=== PATIENT | male | born 1945 | race Caucasian/White ===

== ENCOUNTER 2016-12-18 11:55 | Emergency (ER) | payer OTHER ==
[~2016-12-18] VITALS: Ht 157.5 cm; Wt 65.0 kg
[2016-12-18 11:59] VITALS: Ht 157.5 cm; Wt 65.0 kg
[2016-12-18] MEDS ORDERED: LIDOCAINE 1% (MDV) 20 ML INJ SC ONE (13:30)
[2016-12-18] MEDS ORDERED: IBUPROFEN 600 MG TAB PO ONE (13:30)
[2016-12-18] MEDS ORDERED: DIPHTH/TET/ACEL PERTUSS (ADULT) 0.5 ML VIAL IM* ONE (13:30)
--- NOTE | 2016-12-18 13:44 | RADRPT ---
PROCEDURE: XR Finger. CLINICAL INDICATION: Trauma with laceration. Right fourth finger pain. TECHNIQUE: Three views. Frontal, lateral, and oblique. COMPARISON: None available FINDINGS: There is no fracture or dislocation. The soft tissues are normal. There are degenerative changes of the interphalangeal joints with small osteophytes noted. There is no lytic or blastic lesion. There is no radiopaque foreign body. IMPRESSION: 1. Mild degenerative change. 2. Otherwise normal images of the right fourth finger. RPTAT: QQ .Aleksandr Mcfadden MD, MD Date Time Electronically viewed and signed by .Aleksandr Mcfadden MD, MD on 12/18/2016 13:44 .R/
--- NOTE | 2016-12-18 14:20 | ERD ---
ER Documentation Chief Complaint Date/Time DATE: 12/18/16 TIME: 14:14 Chief Complaint SENT BY PMD FOR LAC ON HAND AND IS UNBLE TO MOVE 4TH FINGER PER NOTE HPI 71-year-old male presents to ED with laceration of his dorsal right fourth finger. Patient stated that he was fixing things in house when a piece of metal object fell and landed on his hand. He was seen at another clinic first, and was sent here to rule out possible tendon injury. Patient does not remember when his last tetanus update was. ROS All systems reviewed and are negative except as per history of present illness. Medications Home Meds Active Scripts Ibuprofen* (Motrin*) 600 Mg Tab, 600 MG PO Q6H Y for PAIN AND OR ELEVATED TEMP, #30 TAB Prov:BARBARANITO Gustabo. FINANCE PROFESSIONAL 12/18/16 Allergies Allergies: Coded Allergies: No Known Allergy (Unverified , 12/18/16) PMhx/Soc Medical and Surgical Hx: pt denies Medical Hx, pt denies Surgical Hx Hx Alcohol Use: No Hx Substance Use: No Hx Tobacco Use: No Smoking Status: Never smoker Physical Exam Vitals Vital Signs Date Time Temp Pulse Resp B/P Pulse Ox O2 Delivery O2 Flow Rate FiO2 12/18/16 11:59 97.7 70 18 186/81 99 Physical Exam General impression: Well-developed, well-nourished. Alert, oriented, in no acute distress Head: Normocephalic, atraumatic. Respiration: Normal respiratory effort. Lungs clear to auscultate bilaterally. No wheezes, rales or rhonchi. Cardiovascular: Regular rate and rhythm. No murmurs or extra heart sounds. Extremities: 1 cm stellar laceration noted on the dorsal right fourth finger , overlying the PIP joint. Underlying bony structure was able was seen through the laceration. Patient has normal flexion and extension of the affected finger , neurovascularly intact distally. Neuro: Mental status normal, speech normal. PSYCHOLOGIST MILITARY PERSONNEL grossly intact. Skin: Normal turgor. No rash or lesions. Psych: Normal mood and affect. Results 24 hrs Current Medications Medications (Trade) Dose Ordered Sig/Emiliano Route PRN Reason Start Time Stop Time Status Last Admin Dose Admin Ibuprofen (Motrin) 600 mg ONCE ONCE PO 12/18/16 13:30 12/18/16 13:31 DC 12/18/16 13:30 Lidocaine (Xylocaine 1% (Mdv) 20 ml) 20 ml ONCE ONCE SC 12/18/16 13:30 12/18/16 13:31 DC Diphtheria/ Tetanus/Acell Pertussis (Adacel) 0.5 ml ONCE ONCE IM* 12/18/16 13:30 12/18/16 13:31 DC 12/18/16 13:33 PROCEDURE: XR Finger. CLINICAL INDICATION: Trauma with laceration. Right fourth finger pain. TECHNIQUE: Three views. Frontal, lateral, and oblique. COMPARISON: None available FINDINGS: There is no fracture or dislocation. The soft tissues are normal. There are degenerative changes of the interphalangeal joints with small osteophytes noted. There is no lytic or blastic lesion. There is no radiopaque foreign body. IMPRESSION: 1. Mild degenerative change. 2. Otherwise normal images of the right fourth finger. RPTAT: QQ .Aleksandr Mcfadden MD, MD Date Time Electronically viewed and signed by .Aleksandr Mcfadden MD, MD on 12/18/2016 13:44 .R/ CC: NITO JIMENEZ NP Procedures/MDM Procedure note: laceration repair Verbal consent was obtained for the laceration repair. The wound was copiously irrigated. Anesthesia was achieved with trans-thecal block using 1% lidocaine. After appropriate anesthesia, the area was explored under a bloodless field. Full range of motion of the joint above and below the injury was noted. No foreign body, deep structure or tendon involvement was noted. Closure was achieved with 6 interrupted sutures using 3-0 Ethilon. Good cosmetic and hemostatic results were obtained with the closure. The wound was then cleaned and a dressing was applied. The area of injury was immobilized with a metal finger splint. Patient was noted to be comfortable and neurovascularly intact both before and after the immobilization. No fractures were seen on x-ray. Patient able to flex and extend his affected finger, I doubt tendon injury. TDap given to the patient in the ED. Patient advised to follow-up in the ED in 2 days for wound check. NITO JIMENEZ NP Dec 18, 2016 14:20
[2016-12-18] MEDS ORDERED: IBUP-1542 PO (14:45)
== END 2016-12-18 14:50 | disposition home or self-care (01) ==
LOC: FTE 11:55
DX: S61.214A Laceration without foreign body of right ring finger without damage to nail, initial encounter (principal); W20.8XXA Other cause of strike by thrown, projected or falling object, initial encounter; Y92.009 Unspecified place in unspecified non-institutional (private) residence as the place of occurrence of the external cause; Z23 Encounter for immunization
CPT/HCPCS: 12001; 73140; 90471; 90715; Z7502; Z7610

== ENCOUNTER 2016-12-20 08:38 | Emergency (ER) | payer OTHER ==
[~2016-12-20] VITALS: Wt 72.0 kg
[~2016-12-20 08:38] MED LIST: IBUP-1542 PO
--- NOTE | 2016-12-20 09:11 | ERD ---
ER Documentation Chief Complaint Date/Time DATE: 12/20/16 TIME: 09:08 Chief Complaint WOUND CHECK TO R 3RD FINGER HPI This a 71-year-old male who presents the emergency department today for a wound check of sutures that he had placed 2 days ago after cutting his right hand fourth finger with metal. States he is taking his antibiotics. States that yesterday he had a lot of pain but he took ibuprofen and that helped. Denies any fevers or chills per ROS All systems reviewed and are negative except as per history of present illness. Medications Home Meds Active Scripts Ibuprofen* (Motrin*) 600 Mg Tab, 600 MG PO Q6H Y for PAIN AND OR ELEVATED TEMP, #30 TAB Prov:NITO JIMENEZ FRESH MEAT GRADER 12/18/16 Allergies Allergies: Coded Allergies: No Known Allergy (Unverified , 12/18/16) PMhx/Soc Hx Alcohol Use: No Hx Substance Use: No Hx Tobacco Use: No Physical Exam Vitals Vital Signs Date Time Temp Pulse Resp B/P Pulse Ox O2 Delivery O2 Flow Rate FiO2 12/20/16 08:41 98.0 71 18 132/71 99 Physical Exam Const: Pleasant, no acute distress Head: Atraumatic Eyes: Normal Conjunctiva ENT: Normal External Ears, Nose and Mouth. Neck: Full range of motion..~ No meningismus. Resp: Clear to auscultation bilaterally Cardio: Regular rate and rhythm, no murmurs Abd: Soft, non tender, non distended. Normal bowel sounds Skin: Right hand with evidence of laceration on the dorsal aspect of his fourth finger. No erythema or warmth. No evidence of purulent drainage. Wound healing well and is well approximated. Evidence of 7 sutures placed Ext: Right hand fourth finger with evidence of 7 sutures placed. Pain with active range of motion. Good cap refill. Neur: Awake and alert Psych: Normal Mood and Affect Procedures/MDM This is a 71-year-old male who presents to the emergency department today for wound check of a laceration that he sustained 2 days ago after cutting his finger with metal. Patient is afebrile and otherwise well-appearing. He did have some difficulty moving his fourth finger however I have low suspicion for tendon involvement. Patient had a negative x-ray with regards to her fracture. His x-ray did show osteoarthritis and osteophytes. Patient also has a swan- neck deformity on his right hand third middle finger. Patient's wound appears to be healing well and is well approximated. He was instructed to stay in a splint and continue taking his antibiotics. Low suspicion for cellulitis, deep space infection, tract infection. Patient has good cap refill. Patient was instructed to return to the emergency department or follow-up with his primary care physician for suture removal in 5-7 days. Wound was redressed here in the emergency department. At this time the patient is stable for discharge and outpatient management. Patient should follow up with their PCP in the next 1-2 days. They may return to the emergency department sooner for any persistent or worsening of symptoms. Patient understood and agreed with the plan. Departure Diagnosis: Primary Impression: Encounter for wound re-check Condition: Fair Patient Instructions: Wound Check, Lac F/U (No Infection) [facility]errals[facility] Usted se schaeffer hecho un examen mdico de control que le indica que no est en juan condicin que requiera tratamiento urgente en el Departamento de Emergencia. Un estudio ms profundo y el tratamiento de alfaro condicin pueden esperar sin ningn riesgo hasta que usted sea atendida/o en el consultorio de alfaro mdico o juan cl ramila. Es responsabilidad suya arreglar juan devon para el seguimiento del gilda. MANEJO DE CONDICIONES NO URGENTES EN EL FUTURO 1) Si usted tiene un mdico de atencin primaria: Usted debera llamar a alfaro mdico de atencin primaria antes de venir al departamento de emergencia. Despus de las horas de consultorio, alfaro doctor o alfaro asociado/a est disponible por telfono. El mdico o enfermero de omid en el servicio telefnico puede asesorarle por camila medio para atender el problema, o gilda contrario se puede programar juan devon. 2) Si usted no tiene un mdico de atencin primaria: Llame al mdico o clnica de referencia que aparece abajo zoie las horas de consultorio para hacer juan devon para que le vean. CLINICAS: [facility] [phone] [facility] [phone] [facility] [phone] [place] [phone] [place] [phone] [place] [id number] [phone] Additional Instructions: Llame al doctor MAANA y lizeth juan DEVON PARA DENTRO DE 1-2 TORRES.Dgale a la secretaria que nosotros le instruimos hacer esta devon.Avise o llame si alfaro condicin se empeora antes de la devon. Regresa aqui si peor o no mejor. Continue taking your antibiotics as prescribed Continue taking Tylenol or Motrin for pain Stay in splint and keep wound clean and dry Return in 5-7 days for suture removal GARY SANTANA PA-C Dec 20, 2016 09:11
== END 2016-12-20 09:18 | disposition home or self-care (01) ==
LOC: FTE 08:38
DX: Z48.01 Encounter for change or removal of surgical wound dressing (principal)
CPT/HCPCS: 99281

== ENCOUNTER 2016-12-26 10:07 | Emergency (ER) | payer OTHER ==
[~2016-12-26] VITALS: Wt 69.0 kg
--- NOTE | 2016-12-26 11:13 | ERD ---
ER Documentation Chief Complaint Date/Time DATE: 12/26/16 TIME: 11:09 Chief Complaint right ring finger suture removal no fevers. HPI 71-year-old male who presents to the emergency room for removal of sutures to his right ring finger dorsal aspect. Stated that the suture was done 9 days ago. Stated that he took the whole course of his antibiotic. Denies headache, loss of consciousness, dizziness, blurry vision, changes in vision, photophobia, facial pain, ear pain, throat pain, difficulty swallowing, neck pain, shoulder pain, chest pain, cough, hemoptysis, abdominal pain, back pain, loss of appetite, nausea, vomiting, hematochezia, diarrhea, constipation, urinary symptoms, bladder and bowel incontinences, extremity weakness, extremity tenderness, numbness or tingling sensation, difficulty walking, recent travel, recent exposure to illness, recent antibiotic use in the last 3 months, fever, chills. Allergy: No known drug allergies. PMH: Diabetes. Medications: Unable to obtain. Surgery: Denies. Family history: Denies. Primary Social History: Retired. Denies smoking, use of alcohol, use of illegal drugs. ROS All systems reviewed and are negative except as per history of present illness. Medications Home Meds Active Scripts Ibuprofen* (Motrin*) 600 Mg Tab, 600 MG PO Q6H Y for PAIN AND OR ELEVATED TEMP, #30 TAB Prov:BARBARANITO X. EQUITY DIRECTOR 12/18/16 Allergies Allergies: Coded Allergies: No Known Allergy (Unverified , 12/20/16) PMhx/Soc Medical and Surgical Hx: pt denies Medical Hx, pt denies Surgical Hx Hx Alcohol Use: No Hx Substance Use: No Hx Tobacco Use: No Smoking Status: Never smoker Physical Exam Vitals Vital Signs Date Time Temp Pulse Resp B/P Pulse Ox O2 Delivery O2 Flow Rate FiO2 12/26/16 10:11 98.6 80 21 172/70 98 Physical Exam CONSTITUTIONAL: Well-appearing; well-nourished; in no apparent distress. HEAD: Normocephalic; atraumatic. EYES: Conjunctiva clear, sclera non-icteric, EOM intact. PERRL Ears: Hearing intact. EACs clear, TMs non-bulging, non-inflamed, translucent & mobile, ossicles normal appearance, No obstructions, no erythema, no discharges Nose: No obstructions. No polyps. No external lesions. Mucosa non-inflamed. No external lesions, septum and turbinates normal. No rhinorrhea. No discharges. Frontal sinus is non-tender to palpation. Maxillary sinus is non-tender to palpation. MOUTH: Moist mucous membranes, no lesion, no obstructions, no vesicles, no thrush, patent airway Throat: Uvula in midline. Right tonsil is +1 with no erythema, no exudate. Left tonsil is +1 with no erythema, no exudate. Tolerating secretions well. Good gag reflex. Patent airway. Neck: Supple, without lesions, bruits, or adenopathy. No mass. Thyroid non- enlarged and non-tender to palpation. CHEST: Symmetrical chest. Respirations even and not labored. No retractions noted. CARDIOVASCULAR: Normal S1, S2. RRR. No murmurs, gallops. RESPIRATORY: Normal chest excursion with respiration; breath sounds clear and equal bilaterally; no wheezes, rhonchi, or rales. Breathing even and unlabored. Speaking in clear, full, and complete sentences w/ ease. ABDOMEN: Normal bowel sounds normal. Soft, round, non-distended, non-guarding, no tenderness, no rebound, no organomegaly, no masses, no pulsating abdominal mass. No hernia. No peritoneal signs. : No CVA tenderness. BACK: Symmetrical shoulder. Spine is midline without deformity, tenderness. No evidence of trauma or deformity. PELVIS: Stable pelvis. No evidence of trauma or deformity. MUSCULOSKELETAL: Normal gait and station. No misalignment, asymmetry, crepitation, defects, tenderness, masses, effusions, decreased range of motion, instability, atrophy or abnormal strength or tone in the head, neck, spine, ribs , pelvis or extremities. No calf tenderness. NEUROVASCULAR: Distal pulses are present. Pedal pulse are present, equal, and normal. Capillary refills are < 2 seconds. NEUROLOGIC: Alert and oriented x4. Speaks full and clear sentences. Cranial Nerves II-XII normal. Sensation to pain, touch, and proprioception normal. Grossly unremarkable. No neurologic deficits. Romberg test is negative. PSYCHOLOGICAL: The patients mood and manner are appropriate. No hallucinations , delusions. Not SI. Not HI. Has the capacity to decide for self SKIN: Normal for age and ethnicity; warm; dry; good turgor; no apparent lesions or exudates. No rashes, hives, discoloration. Right ring finger (proximal and dorsal aspect) sutures 6. No active bleeding. No redness, swelling, discoloration. No discharges. Suture site appeared healed. Has good and full function of flexion and extension of right ring finger with a score of 5/5. No signs of tendon injury. Circulation sensation is intact. No neurovascular deficits. Procedures/MDM Examination: Please see physical examination. Disease process, medical treatment was explained to the patient and family member. They verbalized understanding and agreed with the medical treatment, and follow-up care. Treatment: Suture removal. Removed sutures 6. Applied Steri-Strips 4. Splint application. Re-evaluation: No active bleeding. No discharge. Wound/suture site is clean. No neurovascular deficits prior to removal of sutures, application of Steri- Strips, splint application. Consultation: None. Differential diagnosis: Suture removal and wound check Medical decision makin-year-old male who presents to the emergency room for removal of sutures to his right ring finger dorsal aspect. Stated that the suture was done 9 days ago. Patient's complaint, patient's history about his complaint, my physical findings, my re-evaluation, I consistent with my final diagnosis of suture removal. Patient stated that he took the whole course of his antibiotics. No signs and symptoms of infection. No neurovascular deficits. Medications prescribed are the following: None. Patient and family member are made aware of the side effects and adverse reactions of the medications prescribed. Instructed on when to seek emergent and medical attention in case allergic/anaphylactic reactions or severe side effects and or adverse reactions to medications. Patient and family member verbalized understanding. Patient instructed Instructed to follow-up with his PCP in 24-48 hours. Stated that he will see his PCP in the next 24 hours. Instructed to Call 911 for chest pain, shortness of breath. Advised to come back here in ED as soon as possible for severity of symptoms which includes but not limited to: any new symptoms; shortness of breath/difficulty of breathing; cardiovascular changes; severe gastrointestinal symptoms; signs and symptoms of bleeding and or infection; signs of compartment syndrome/neurovascular changes; neurological changes/deficits. Patient and family member verbalized understanding. Upon discharge, patient is alert and oriented x 4, speaks full and clear sentences, denies pain, has no neurological deficits, has no neurovascular deficits, difficulty of breathing. Breathing even and unlabored. Lung sounds are clear to auscultation. Not in distress. Appears comfortable. Ambulatory with steady gait. Appears satisfied with care provided here in ED. Departure Diagnosis: Primary Impression: Encounter for removal of sutures Condition: Good Additional Instructions: Patient instructed Instructed to follow-up with his PCP in 24-48 hours. Stated that he will see his PCP in the next 24 hours. Instructed to Call 911 for chest pain, shortness of breath. Advised to come back here in ED as soon as possible for severity of symptoms which includes but not limited to: any new symptoms; shortness of breath/difficulty of breathing; cardiovascular changes; severe gastrointestinal symptoms; signs and symptoms of bleeding and or infection; signs of compartment syndrome/neurovascular changes; neurological changes/deficits. Patient and family member verbalized understanding. BRENDA PAZ Dec 26, 2016 11:13 BRENDA PAZ Dec 26, 2016 11:13
== END 2016-12-26 12:33 | disposition home or self-care (01) ==
LOC: FTE 10:07
DX: Z48.02 Encounter for removal of sutures (principal)
CPT/HCPCS: 99281